=== PATIENT | male | born 1980 | race Caucasian/White ===

== ENCOUNTER 2024-09-26 06:33 | Day surgery (SDC) | payer BC ==
[2024-09-26] MEDS ORDERED: Propofol 200 MG/20 ML SDV ONE ×2 (06:53→08:13)
[2024-09-26] MEDS ORDERED: Midazolam 1 MG/ML 2 ML SDV ONE (06:53)
[2024-09-26] MEDS ORDERED: fentaNYL 50 MCG/ML SDV ONE (06:53)
[2024-09-26] MEDS: Lactated Ringers 1,000 ML IV SCH (07:13)
== END 2024-09-26 09:35 | disposition home or self-care (01) ==
LOC: JP.SDS 06:33
PROVIDERS: ATTEND Surgery
DX: Z12.11 Encounter for screening for malignant neoplasm of colon (principal); D12.5 Benign neoplasm of sigmoid colon
CPT/HCPCS: 45385; J2250; J2704; J3010; J7120; 88305